=== PATIENT | male | born 1990 | race Caucasian/White ===

== ENCOUNTER 2018-06-16 21:25 | Emergency (ER) | payer MEDICAID ==
[~2018-06-16] VITALS: Ht 180.3 cm; Wt 72.6 kg
--- NOTE | 2018-06-16 22:05 | NUR ---
BIB SELF. TO ER BED 4. AAOX4. NAD. NO SOB, BREATHING EVEN AND UNLABORED. AMBULATORY. C/O NON PRODUCTIVE COUGH, SORE THROAT WITH DISCOMFORT WHEN SWALLOWING X 3 MONTH. CHEST THIGHTNESS IN THE SUPRA STERNUM AREA WHICH IS NOT FELT WHEN HE IS ADEQUATELY FED AND NOT STRESSED PER PT. MD AT BEDSIDE FOR EVAL. Addendum: 06/16/18 at 2228 by ANTONETTE PT ALSO STATES THAT HE HAS BEEN TAKING PRILOSEC.
--- NOTE | 2018-06-16 22:16 | NUR ---
XRAY AT BEDSIDE
[2018-06-16] MEDS ORDERED: DEXAMETHASONE SOD PHOSPHATE 10 MG/ML VIAL ONE (22:18)
[2018-06-16] MEDS ORDERED: IPRATROPIUM NEB FS 0.5 MG/2.5 ML AMPUL.NEB ONE (22:22)
[2018-06-16] MEDS ORDERED: ALBUTEROL FS 2.5 MG/0.5 ML VIAL.NEB ONE (22:22)
[2018-06-16] MEDS ORDERED: IPRATROPIUM NEB FS 0.5 MG/2.5 ML AMPUL.NEB NEB ONE (22:30)
[2018-06-16] MEDS ORDERED: ALBUTEROL FS 2.5 MG/0.5 ML VIAL.NEB NEB ONE (22:30)
[2018-06-16] MEDS ORDERED: DEXAMETHASONE SOD PHOSPHATE 10 MG/ML VIAL IM ONE (22:30)
--- NOTE | 2018-06-16 22:43 | NUR ---
Patient discharged to home in stable condition. Written and verbal after care instructions given. Patient verbalizes understanding of instruction.
[2018-06-16 22:46] VITALS: BP 131/73
== END 2018-06-16 22:45 | disposition home or self-care (01) ==
LOC: ER 21:37
DX: R05 Cough (principal); J02.9 Acute pharyngitis, unspecified; Z87.891 Personal history of nicotine dependence
CPT/HCPCS: 71045; 94640; 96372; 99283; J1100